=== PATIENT | male | born 1935 | race Caucasian/White ===

== ENCOUNTER 2022-04-20 17:53 | Inpatient (IN) | payer MEDICARE ==
[~2022-04-20] VITALS: Ht 182.9 cm; Wt 103.9 kg
[2022-04-20] MEDS ORDERED: IV NS 0.9% 500 ML BAG IV ONE (18:30)
--- NOTE | 2022-04-20 18:47 | NUR ---
BRADEN RA99 From Home "Throat/Hoarseness Feeling weak, Near syncope while in the shower [id number]". PT AAOX3. RR EVEN & UNLABORED. PT HYPOTENSIVE, ERMD AWARE. PLACED ON OPTICAL ENGINEERING TECHNICIAN, SR. DENIES CP, SOB, DIZZINESS, N/V, NUMBNESS/TINGLING SENSATION. NEURO INTACT. WILL CONT TO MONITOR.
[2022-04-20] MEDS ORDERED: TAMS-12 PO (18:59)
[2022-04-20] MEDS ORDERED: DAPA10TA PO (18:59)
[2022-04-20] MEDS ORDERED: CARV6.252 PO (18:59)
[2022-04-20] MEDS ORDERED: THIA100T70 PO (18:59)
[2022-04-20] MEDS ORDERED: SACU1TAB PO (18:59)
[2022-04-20] MEDS ORDERED: APIX2.5T PO (18:59)
[2022-04-20] MEDS ORDERED: FURO40TA5 PO (18:59)
[2022-04-20 19:12] LABS: ALANINE AMINOTRANSFERASE 21 U/L (12-78); ALBUMIN 3.3 g/dL (3.4-5.0); ALKALINE PHOSPHATASE 188 U/L (46-116); ASPARTATE AMINOTRANSFERASE 17 U/L (15-37); BILIRUBIN,DIRECT 0.3 mg/dL (0.0-0.2); BILIRUBIN,TOTAL 0.6 mg/dL (0.2-1.0); CALCIUM, SERUM 8.4 mg/dL (8.5-10.1); CARBON DIOXIDE 20 mmol/L (21-32); CHLORIDE 111 mmol/L (98-107); GLUCOSE 128 mg/dL (74-106); POTASSIUM 5.5 mmol/L (3.5-5.1); SODIUM SERUM 146 mmol/L (136-145); TOTAL PROTEIN, SERUM 6.6 g/dL (6.4-8.2)
[2022-04-20 19:23] LABS: UREA NITROGEN, BLOOD 109 mg/dL (7-18)
--- NOTE | 2022-04-20 19:23 | NUR ---
BUN 109
--- NOTE | 2022-04-20 19:35 | NUR ---
MOVE SHEET SUBMITTED.
[2022-04-20] MEDS ORDERED: SODIUM BICARBONATE SYR 50 MEQ/50 ML DISP.SYRIN ONE (19:43)
[2022-04-20] MEDS ORDERED: INSULIN REGULAR, HUMAN 100 UNIT/ML 10 ML VIAL ONE (19:43)
[2022-04-20] MEDS ORDERED: DEXTROSE 50%-WATER 50 ML DISP.SYRIN ONE (19:43)
[2022-04-20] MEDS ORDERED: INSULIN REGULAR, HUMAN 100 UNIT/ML 10 ML VIAL IV ONE (20:00)
[2022-04-20] MEDS ORDERED: SODIUM BICARBONATE SYR 50 MEQ/50 ML DISP.SYRIN IV ONE (20:00)
[2022-04-20] MEDS ORDERED: DEXTROSE 50%-WATER 50 ML DISP.SYRIN IV ONE (20:00)
[2022-04-20 20:21] LABS: BASOPHILS % (AUTO) 0.1 % (0.0-2.0); EOSINOPHILS % (AUTO) 0.4 % (0.0-6.0); HEMATOCRIT 30 % (39-51); HEMOGLOBIN 9.9 g/dL (13.5-17.5); LYMPHOCYTES # (AUTO) 0.4 K/uL (0.8-4.8); LYMPHOCYTES % (AUTO) 3.6 % (20.0-44.0); MEAN CORPUSCULAR HGB CONC 33 g/dl (31.0-36.0); MEAN CORPUSCULAR VOLUME 92 fL (80-96); MONOCYTES # (AUTO) 0.9 K/uL (0.1-1.30); MONOCYTES % (AUTO) 8.8 % (2.0-12.0); NEUTROPHILS # (AUTO) 8.5 K/uL (1.8-8.9); NEUTROPHILS % (AUTO) 87.1 % (43.0-81.0); RED BLOOD CELL COUNT(AUTO) 3.27 MIL/uL (4.5-6.0); WHITE BLOOD COUNT (AUTO) 9.7 K/uL (4.3-11.0)
[2022-04-20 20:24] LABS: PLATELET COUNT (AUTO) 47 K/uL (150-450)
--- NOTE | 2022-04-20 20:43 | NUR ---
PT BEING TRANSPORTED TO CT
--- NOTE | 2022-04-20 20:50 | NUR ---
BED 117
[2022-04-20 21:24] LABS: BAND % (MANUAL) 2 % (0.0-5.0); LYMPHOCYTES % (MANUAL) 6 % (16-48); MONOCYTES % (MANUAL) 8 % (0-11.0); NEUTROPHILS % (MANUAL) 84 (42-76)
--- NOTE | 2022-04-20 21:29 | NUR ---
DR BACA ON THE PHONE WITH DR FRANCE
--- NOTE | 2022-04-20 21:59 | NUR ---
pt taken to and returned from ct scan
--- NOTE | 2022-04-20 22:05 | NUR ---
RN BARIATRIC AT BEDSIDE
[2022-04-20] MEDS ORDERED: LEVOFLOXACIN 750 MG /D5W 150ML 150 ML IV ONE ×2 (22:49→23:00)
[2022-04-20] MEDS ORDERED: AZTREONAM 1 G in IV NS 0.9% 100 ML IV ONE (23:00)
[2022-04-20] MEDS ORDERED: METRONIDAZOLE 500MG/ NS 100ML 100 ML IV ONE (23:00)
--- NOTE | 2022-04-20 23:03 | NUR ---
REPORT GIVEN TO NHAN
--- NOTE | 2022-04-20 23:39 | NUR ---
PT TRANSPORTED TO ROOM 117-1 ON TURNER MACHINE PER ACLS WITH LEVAQUIN INFUSING AT 150ML/HR. V/S STABLE AT TRANSFER.
[2022-04-20 23:45] VITALS: BP 91/60
--- NOTE | 2022-04-20 23:45 | NUR ---
ADMISSION RN NOTES, RECEIVED 87 YEAR OLD MALE ADMITTED FROM ER VIA STRETCHER ACCOMPANIED BY NURSES, UNDER MEDICAL SERVICES OF HOLDEN ESTRADA, RONA LEÓN ASPHALT DISTRIBUTOR TENDER CARTON LINER FOR TONIGHT, DX PNA, CHF, FARA PATIENT A/O X3 ABLE TO VERBALIZE NEEDS AND CONCERNS, AT ROOM AIR NO SOB/ACUTE DISTRESS NOTED BUT UNABLE TO LAY FLAT, 02 98%, 91/50, LOW TEMPERATURE, WILL PLACE BEAR HUGGER, PATIENT WITH RIGHT AC AND LEFT HADN PERIPHERAL IV LINES, NOTED REDNESS SACRAL/INTERGLUTEAL AREA, MULTIPLE DISCOLORATIONS BACK/CHEST AND ARMS, NO OPEN SKIN NOTED, LCW PACEMAKER IN PLACED, WHEN CONNECTED TO TELE MONITOR, SHOWS V-PACING WITH HR IN 80S, ALL SAFETY PRECAUTIONS IN PLACED, ORIENTED TO ROOM AND EDUCATED TO CALL FOR ASSISTANCE, BED LOOKED AND IN LOWEST POSITION, CALL LIGHT W/I REACH, WILL CONTINUE TO MONITOR CLOSELY.
[2022-04-21] MEDS ORDERED: Z GUARD REMEDY 4 OZ OINT TP PRN
[2022-04-21] MEDS ORDERED: ACETAMINOPHEN 650 MG/SUPP.RECT RC PRN
[2022-04-21] MEDS ORDERED: ONDANSETRON HCL/PF 4 MG/2 ML VIAL IVP PRN
[2022-04-21] MEDS ORDERED: MEROPENEM 500 MG VIAL IV ONE (00:21)
[2022-04-21] MEDS: IV D5/0.45 NACL 1,000 ML IV PRN (00:22)
[2022-04-21] MEDS: MEROPENEM 500 MG in IV NS 0.9% 50 ML IV SCH ×3 (00:22→23:52)
[2022-04-21] MEDS ORDERED: METRONIDAZOLE 500MG/ NS 100ML 100 ML IV ONE (00:54)
[2022-04-21] MEDS ORDERED: AZTREONAM 1 G VIAL ONE (00:54)
[2022-04-21 02:00] VITALS: BP 101/61
[2022-04-21 04:00] VITALS: BP 90/55
--- NOTE | 2022-04-21 04:00 | NUR ---
ABLE TO OBTAIN BODY TEMP 96.9 AT THIS TIME, PATIENT WITH BEAR BELKIS, WILL CONT TO MONITOR CLOSELY.
--- NOTE | 2022-04-21 07:00 | NUR ---
called daughter earlier ange verify code staus of pt, called her again at this time, and she stated that her dad has an advance directives, but she does not remember what is written there, will fx later for now he will be consider full code, and she agreed, patient pulled iv line sand cont pulling tubings and tryong to get up from bed, order for restrains obtained from Nabeel Rees NP, F/C in placed 550ml obtained, cont on IVF as ordered, endorsed to Quinn MALAVE for cont of care.
[2022-04-21 07:05] LABS: BASOPHILS % (AUTO) 0.2 % (0.0-2.0); EOSINOPHILS % (AUTO) 1.7 % (0.0-6.0); HEMATOCRIT 29 % (39-51); HEMOGLOBIN 9.5 g/dL (13.5-17.5); LYMPHOCYTES # (AUTO) 0.3 K/uL (0.8-4.8); LYMPHOCYTES % (AUTO) 4.5 % (20.0-44.0); MEAN CORPUSCULAR HGB CONC 33 g/dl (31.0-36.0); MEAN CORPUSCULAR VOLUME 90 fL (80-96); MONOCYTES # (AUTO) 0.7 K/uL (0.1-1.30); MONOCYTES % (AUTO) 11.3 % (2.0-12.0); NEUTROPHILS # (AUTO) 5.2 K/uL (1.8-8.9); NEUTROPHILS % (AUTO) 82.3 % (43.0-81.0); RED BLOOD CELL COUNT(AUTO) 3.21 MIL/uL (4.5-6.0); WHITE BLOOD COUNT (AUTO) 6.3 K/uL (4.3-11.0)
--- NOTE | 2022-04-21 07:30 | NUR ---
RN NOTES PT FOUND SEMI FOWLERS DISPLAYING NO S/S OF DISTRESS, FLACC = 0 AND BREATHING IS EVEN AND UNLABORED ON RA. L UA ML IS PATIENT AND INTACT. BILATERAL SOFT WRISTS APPLIED, PULSES PALPATED DISTALLY AND CAP REFILL < 3 SECONDS BILATERALLY. PEREZ CATH BELOW PATIENT DRAINING BY GRAVITY. CONTINUE PLAN OF CARE AND ANTICIPATE NEEDS. SAFETY MEASURES IN PLACE, BED LOCKED AND IN LOWEST POSITION, SIDE RAILS UPX2, CALL LIGHT WITHIN REACH, BED ALARM ARMED.
[2022-04-21 07:31] LABS: PLATELET COUNT (AUTO) 42 K/uL (150-450)
[2022-04-21 07:46] LABS: CALCIUM, SERUM 8.2 mg/dL (8.5-10.1); CARBON DIOXIDE 22 mmol/L (21-32); CHLORIDE 112 mmol/L (98-107); CREATININE 2.9 mg/dL (0.6-1.3); GLUCOSE 92 mg/dL (74-106); MAGNESIUM 3.5 mg/dL (1.8-2.4); PHOSPHORUS 5.4 mg/dL (2.5-4.9); POTASSIUM 5.1 mmol/L (3.5-5.1); SODIUM SERUM 146 mmol/L (136-145)
[2022-04-21 07:50] LABS: IRON, SERUM 33 ug/dl (50-175); TOTAL IRON BINDING CAPACITY 300 ug/dl (250-450)
[2022-04-21 07:55] LABS: CHOLESTEROL 104 mg/dL (<200); HDL CHOLESTEROL 35 mg/dL (40-60); LDL 62 mg/dL (0-99); TRIGLYCERIDES 46 mg/dL (30-150)
--- NOTE | 2022-04-21 08:00 | NUR ---
SWALLOW EVAL ST PERFORMED SWALLOW EVALUATION, ST RECOMMENDED TO MAINTAIN NPO STATUS. RN ACKNOWLEDGED AND WILL MAINTAIN.
[2022-04-21 08:12] LABS: UREA NITROGEN, BLOOD 109 mg/dL (7-18)
[2022-04-21] MEDS: PANTOPRAZOLE 40 MG VIAL IV SCH (09:49)
--- NOTE | 2022-04-21 19:30 | NUR ---
RN NOTES PT FOUND SEMI FOWLERS DISPLAYING NO S/S OF DISTRESS, FLACC = 0 AND BREATHING IS EVEN AND UNLABORED ON RA. L UA ML IS PATIENT AND INTACT. BILATERAL SOFT WRISTS APPLIED, PULSES PALPATED DISTALLY AND CAP REFILL < 3 SECONDS BILATERALLY. PEREZ CATH BELOW PATIENT DRAINING BY GRAVITY, HEMATURIA NOTED AND MD KITCHEN NOTIFIED, TERMITE RENEWAL INSPECTOR INFORMED OF MD ORDERS. SBAR AND REPORT GIVEN TO TERMITE RENEWAL INSPECTOR RN, ALL QUESTIONS ANSWERED. SAFETY MEASURES IN PLACE, BED LOCKED AND IN LOWEST POSITION, SIDE RAILS UPX2, CALL LIGHT WITHIN REACH, BED ALARM ARMED. PT ENDORSED IN STABLE CONDITION FOR NAYELY.
[2022-04-21 20:00] VITALS: BP 111/68
[2022-04-22] VITALS (14 sets, daily range): BP systolic 97–151; BP diastolic 57–92
--- NOTE | 2022-04-22 03:52 | NUR ---
PATIENT YELLING, AGITATED, REFUSING VITAL SINGS AND TRYING TO REMOVE RESTRAINS, RONA LEÓN INFORMED AND REPLIED WITH ORDER FOR ATIVAN 0.5MG IVP ONCE, ORDER NOTED AND CARRIED OUT.
[2022-04-22] MEDS ORDERED: LORAZEPAM INJ 2 MG/ML VIAL IV ONE (04:00)
--- NOTE | 2022-04-22 04:00 | NUR ---
PATIENT REFUSED VITAL SINGS, BECOME AGITATED AND YELLING.
[2022-04-22] MEDS: IV D5/0.45 NACL 1,000 ML IV PRN ×2 (04:19→12:33)
--- NOTE | 2022-04-22 06:45 | NUR ---
RN CLOSING NOTE, PATIENT IS IN BED ASLEEP AT THIS TIME, ON ROOM AIR WITH OPTIMAL OO2 SAT LEVEL, V-PACING ON BINITROTOLUENE OPERATOR, LEFT AC 18G PATENT AND INTACT, D5 1/2 NS AT 50CC/HR INFUSING WELL AND PATIENT TOLERATED WELL, F/C IN PLACE DRAINING HEMATURIA BY GRAVITY, STUDY SPECIALIST IMTIAZ AWARE, ATIVAN IVP ADMINISTERED FOR AGITATION EARLIER, BILATERAL SOFT WRIST RESTRAIN IN PLACED, FREQUENT SKIN CHECKS DONE, NO ABNORMALITY NOTED, NO CIRCULATION COMPROMISED, BED LOCKED AND LOWEST POSITION, 3 SIDE RAILS UP, CALL LIGHT WITHIN REACH, WILL ENDORSE CONTINUITY OF CARE TO ONCOMING NURSE
--- NOTE | 2022-04-22 08:04 | NUR ---
RN [facility] NOTES PATIENT RECEIVED IN MY CARE THIS SHIFT, A/O X 2, TELE READING SHOWS V PACING AT 70'S, ON NC AT 2L, PEREZ DRAINING HEMATURIA BY GRAVITY, WITH IVF D5 1/2 NS ON LT AC 18G AT 50 ML/HR INFUSING WELL. BILATERAL SOFT WRIST RESTRAIN IN PLACE, FREQUENT SKIN CHECKS DONE, NO ABNORMALITY NOTED, NO CIRCULATION COMPROMISED, BED LOCKED AND IN LOWEST POSITION, 3 SIDE RAILS UP, CALL LIGHT WITHIN REACH. WILL CONTINUE TO MONITOR.
[2022-04-22 08:40] LABS: BASOPHILS % (AUTO) 0.3 % (0.0-2.0); EOSINOPHILS % (AUTO) 2.3 % (0.0-6.0); HEMATOCRIT 30 % (39-51); HEMOGLOBIN 9.9 g/dL (13.5-17.5); LYMPHOCYTES # (AUTO) 0.5 K/uL (0.8-4.8); LYMPHOCYTES % (AUTO) 10.6 % (20.0-44.0); MEAN CORPUSCULAR HGB CONC 33 g/dl (31.0-36.0); MEAN CORPUSCULAR VOLUME 91 fL (80-96); MONOCYTES # (AUTO) 0.8 K/uL (0.1-1.30); MONOCYTES % (AUTO) 17.6 % (2.0-12.0); NEUTROPHILS # (AUTO) 3.2 K/uL (1.8-8.9); NEUTROPHILS % (AUTO) 69.2 % (43.0-81.0); RED BLOOD CELL COUNT(AUTO) 3.33 MIL/uL (4.5-6.0); WHITE BLOOD COUNT (AUTO) 4.6 K/uL (4.3-11.0)
[2022-04-22 08:52] LABS: PLATELET COUNT (AUTO) 45 K/uL (150-450)
[2022-04-22] MEDS: TAMSULOSIN 0.4 MG CAP.SR.24H PO SCH (09:00)
[2022-04-22] MEDS: APIXABAN 2.5 MG TABLET PO SCH ×2 (09:00→17:00)
[2022-04-22] MEDS: CARVEDILOL 6.25 MG TABLET PO SCH ×2 (09:00→20:59)
--- NOTE | 2022-04-22 09:17 | NUR ---
telecommunication lines repairer note unable to give po meds patent is lethargic also patient with hematuria hold elicits at this time
[2022-04-22] MEDS: PANTOPRAZOLE 40 MG VIAL IV SCH (09:26)
[2022-04-22 09:30] LABS: ALANINE AMINOTRANSFERASE 17 U/L (12-78); ALBUMIN 2.9 g/dL (3.4-5.0); ALKALINE PHOSPHATASE 174 U/L (46-116); ASPARTATE AMINOTRANSFERASE 18 U/L (15-37); BILIRUBIN,TOTAL 0.6 mg/dL (0.2-1.0); CALCIUM, SERUM 8.4 mg/dL (8.5-10.1); CARBON DIOXIDE 23 mmol/L (21-32); CHLORIDE 115 mmol/L (98-107); CREATININE 3.1 mg/dL (0.6-1.3); GLUCOSE 94 mg/dL (74-106); MAGNESIUM 3.6 mg/dL (1.8-2.4); PHOSPHORUS 5.9 mg/dL (2.5-4.9); POTASSIUM 4.9 mmol/L (3.5-5.1); SODIUM SERUM 146 mmol/L (136-145); TOTAL PROTEIN, SERUM 6.1 g/dL (6.4-8.2)
[2022-04-22 09:37] LABS: UREA NITROGEN, BLOOD 108 mg/dL (7-18)
--- NOTE | 2022-04-22 09:49 | NUR ---
[facility] RN NOTE PT IS LETHARGIC. SEVERE CONGESTION NOTED. NOTIFIED DR LIRA AND ORDERED CHEST XRAY. DR CHOI ASSET PROTECTION SPECIALIST ORDERED ABG STAT. RT AT BEDSIDE WILL FOLLOW UP.
[2022-04-22 10:16] LABS: ABG BASE EXCESS -7.4 mmol/L; ABG PCO2 36.4 mmHg (35.0-45.0); ABG PH 7.313 (7.350-7.450); ABG PO2 100.1 mmHg (75.0-100.0); COHb 0.3 % (0.5-1.5); MetHb 0.2 % (0.0-1.5); O2Hb 96.4 % (94.0-97.0); SITE, ABG Right Radial
--- NOTE | 2022-04-22 10:56 | NUR ---
[facility] RN NOTES PT STILL LETHARGIC W CONGESTION. REPORTED TO RT AND TO DR LIRA. ORDERED TO TRANSFER TO ICU. FAMILY AT BEDSIDE. UPDATED ABOUT PT CONDITION. TRANSFER TO RM 257. REPORT GIVEN TO HENRY.
[2022-04-22 11:36] LABS: BAND % (MANUAL) 2 % (0.0-5.0); LYMPHOCYTES % (MANUAL) 15 % (16-48); MONOCYTES % (MANUAL) 10 % (0-11.0); NEUTROPHILS % (MANUAL) 70 (42-76)
[2022-04-22 11:37] LABS: EOSINOPHILS % (MANUAL) 3 % (0-4)
[2022-04-22] MEDS: MEROPENEM 500 MG in IV NS 0.9% 50 ML IV SCH (11:54)
[2022-04-22] MEDS ORDERED: LEVOFLOXACIN 500 MG /D5W 100ML 100 ML IV ONE (13:00)
[2022-04-22] MEDS ORDERED: DOXYCYCLINE HYCLATE (100 MG) 100 MG TABLET PO SCH (13:30)
--- NOTE | 2022-04-22 19:00 | NUR ---
RN NOTES PT FOUND SEMI FOWLERS DISPLAYING NO S/S OF DISTRESS, FLACC = 0 AND BREATHING IS EVEN AND UNLABORED ON 2L O2 NC. L AC 20G IS PATIENT AND INTACT. BILATERAL SOFT WRISTS APPLIED, PULSES PALPATED DISTALLY AND CAP REFILL < 3 SECONDS BILATERALLY. PEREZ CATH BELOW PATIENT DRAINING BY GRAVITY. SBAR AND REPORT GIVEN TO HEAD PASTRY CHEF RN, ALL QUESTIONS ANSWERED. SAFETY MEASURES IN PLACE, BED LOCKED AND IN LOWEST POSITION, SIDE RAILS UPX2, CALL LIGHT WITHIN REACH, BED ALARM ARMED. PT ENDORSED IN STABLE CONDITION FOR NAYELY.
[2022-04-22] MEDS: DOXYCYCLINE 100 MG in IV D5W 100 ML IV SCH (20:59)
--- NOTE | 2022-04-22 22:55 | NUR ---
RN NOTE [facility] TRANSFER TEAM CALLED STATING THERE IS NO BED AVAILABLE FOR PATIENT AT THIS TIME.
[2022-04-23] VITALS (25 sets, daily range): BP systolic 117–149; BP diastolic 52–98
[2022-04-23] MEDS: MEROPENEM 500 MG in IV NS 0.9% 50 ML IV SCH ×3 (00:19→23:51)
[2022-04-23 01:19] LABS: COLOR,URINE RED (YELLOW)
[2022-04-23 01:20] LABS: PH,URINE 6.5 (5.0-8.0); PROTEIN,URINE >300 mg/dl (NEGATIVE)
[2022-04-23 01:21] LABS: BILIRUBIN,URINE SMALL (NEGATIVE); UGLUCOSE NEGATIVE (NEGATIVE)
[2022-04-23 01:22] LABS: LEUKOCYTE ESTERASE ,URINE SMALL (NEGATIVE); NITRITE, URINE POSITIVE (NEGATIVE)
[2022-04-23 03:54] LABS: BACTERIA,URINE Many /HPF (None Seen); RBC,URINE TOO NUMEROUS TO COUN /HPF (0-2); SQUAMOUS EPITHELIAL CELL,UR Rare /HPF (None Seen); WBC,URINE 81-100 /HPF (0-3)
[2022-04-23 04:40] LABS: BASOPHILS % (AUTO) 0.4 % (0.0-2.0); EOSINOPHILS % (AUTO) 3.5 % (0.0-6.0); HEMATOCRIT 32 % (39-51); HEMOGLOBIN 10.4 g/dL (13.5-17.5); LYMPHOCYTES # (AUTO) 0.5 K/uL (0.8-4.8); LYMPHOCYTES % (AUTO) 10.1 % (20.0-44.0); MEAN CORPUSCULAR HGB CONC 33 g/dl (31.0-36.0); MEAN CORPUSCULAR VOLUME 91 fL (80-96); MONOCYTES # (AUTO) 0.7 K/uL (0.1-1.30); MONOCYTES % (AUTO) 14.7 % (2.0-12.0); NEUTROPHILS # (AUTO) 3.6 K/uL (1.8-8.9); NEUTROPHILS % (AUTO) 71.3 % (43.0-81.0); PLATELET COUNT (AUTO) 59 K/uL (150-450); RED BLOOD CELL COUNT(AUTO) 3.53 MIL/uL (4.5-6.0)
[2022-04-23 04:43] LABS: CHLORIDE 114 mmol/L (98-107); CREATININE 3.1 mg/dL (0.6-1.3); GLUCOSE 111 mg/dL (74-106); POTASSIUM 4.9 mmol/L (3.5-5.1); SODIUM SERUM 144 mmol/L (136-145)
[2022-04-23 04:46] LABS: UREA NITROGEN, BLOOD 102 mg/dL (7-18)
[2022-04-23 05:15] LABS: CALCIUM, SERUM 8.9 mg/dL (8.5-10.1)
[2022-04-23] MEDS: IV D5/0.45 NACL 1,000 ML IV PRN (06:12)
--- NOTE | 2022-04-23 06:28 | NUR ---
RN CLOSING NOTE PATIENT ON ISOLATION TO R/O COVID. A/OZ1, PERIODS OF CONFUSION. ALERT ABLE TO FOLLOW COMMANDS. TOLERATING ROOM AIR. NO COMPLAINTS OF PAIN. 100% V-PACING. PEREZ CATHETER WITH HEMATURIA. NO BM. PENDING OB STOOL COLLECTION. BILATERAL SOFT WRIST RESTRAINTS PRESET,, NO REDNESS. PATIENT IS NPO, PENDING SWALLOW EVAL. D51/2NS RUNNING. ABX GIVEN ORDERED. PENDING TO COLLECT RESP CULTURE, BLE DUPLEX. AND TRANSFER TO [facility], AWAITING BED ASSIGNMENT.
--- NOTE | 2022-04-23 07:30 | NUR ---
RN OPENING NOTE PT RECEIVED IN BED WITH BILATERAL SOFT WRIST RESTRAINTS AT THIS TIME. PT IS ON RA TOLERATING WELL WITH NO SIGNS OF DISTRESS OR LABORED BREATHING O2 SAT 97%. PT IS A/OX1; CONFUSED, ENDORSED TO BE GRUMPY AND COMBATIVE. PT IS NPO AT THIS TIME AND SCHEDULED TO HAVE SWALLOW EVAL THIS MORNING. IV ACCESS L AC 20G AND L HAND 20G INFUSING WITH D5 1/2NS @50ML/HR. FC IS IN PLACE DRAINING URINE TO GRAVITY PT HAS HEMATURIA AT THIS TIME. BED IS LOCKED IN LOWEST POSITION X3 BED RAILS UP AND ALL HOSPITAL SAFETY PRECAUTIONS ARE IN PLACE. WILL CONTINUE TO MONITOR THIS SHIFT.
[2022-04-23] MEDS: CARVEDILOL 6.25 MG TABLET PO SCH ×2 (08:17→21:18)
[2022-04-23] MEDS: TAMSULOSIN 0.4 MG CAP.SR.24H PO SCH (08:18)
[2022-04-23] MEDS: FARXIGA 10 MG PO SCH (08:18)
[2022-04-23] MEDS: PANTOPRAZOLE 40 MG VIAL IV SCH (08:41)
[2022-04-23] MEDS: DOXYCYCLINE 100 MG in IV D5W 100 ML IV SCH ×2 (08:41→21:05)
[2022-04-23] MEDS: HEPARIN SODIUM, PORCINE 5000 UNITS/1 ML VIAL SQ SCH ×2 (09:00→18:44)
--- NOTE | 2022-04-23 09:00 | NUR ---
RN NOTE: SWALLOW EVAL SWALLOW EVAL ATTEMPT WAS UNSUCCESFUL DUE TO PT BEING CONFUSED. ST STATED THEY WILL TRY AGAIN TOMORROW.
--- NOTE | 2022-04-23 09:30 | NUR ---
RN NOTE: HEPARIN PT HAS HEMATURIA AT THIS TIME AND PLT LEVEL 59. MD CONTACTED, PER DR. POLLARD HOLD HEPARIN DOSE AND CONTINUE TO MONITOR HEMATURIA.
--- NOTE | 2022-04-23 11:45 | NUR ---
RN NOTE: DIET PT PASSED BED SIDE SWALLOW SCREEN PERFORMED BY THIS NURSE. PER DR. POLLARD, PT PLACED ON PUREE CARDIAC DIET WITH THICKENER.
[2022-04-23] MEDS ORDERED: LEVOFLOXACIN 250 MG /D5W 50 ML 250 MG in PREMIX 1 EA IV SCH (12:00)
--- NOTE | 2022-04-23 12:30 | NUR ---
RN NOTE: JUAN PT TOLERATED PUREE FOODS WELL WITHOUT COMPLICATION. WILL CONTINUE TO MONITOR.
--- NOTE | 2022-04-23 18:45 | NUR ---
RN CLOSING NOTE PT IS SITTING UP IN BED WITH BILATERAL SOFT WRIST RESTRAINTS AT THIS TIME DAUGHTER GEORGE) IS AT BEDSIDE. PT IS ON RA TOLERATING WELL WITH NO SIGNS OF DISTRESS OR LABORED BREATHING O2 SAT 98%. PT IS A/OX2; WITH PERIODS OF CONFUSION. PT IS ON CARDIAC PUREE DIET AND TOLERATED WELL. IV ACCESS L AC 20G INFUSING WITH D5 1/2NS @50ML/HR. FC IS IN PLACE DRAINING URINE TO GRAVITY PT HAS HEMATURIA AT THIS TIME -400ML. BED IS LOCKED IN LOWEST POSITION X3 BED RAILS UP AND ALL HOSPITAL SAFETY PRECAUTIONS ARE IN PLACE. WILL ENDORSE TO REMEDIAL TEACHER NURSE FOR NAYELY.
--- NOTE | 2022-04-23 19:05 | NUR ---
RN OPENING NOTES RECEIVED PATIENT ON BED, ALERT AND VERBALLY RESPONSIVE, A/O x 2, WITH CONFUSION, ON ROOM AIR SATING AT 97%, RESPIRATORY EVEN AND UNLABORED, NO SOB NOTED, NOT IN ACUTE DISTRESS. STILL NOTES WITH HOARSE VOICE. REMAIN AFEBRILE. V-PACING ON MONITOR. NOTED WITH LAC IV LINE, PATENT, INTACT. FLUSHED WITH NS, NO S/S OF INFILTRATION NOTED AT SITE. RUNNING WITH D5 1/2 NS @ 40 ML/HR. PATIENT WITH PEREZ CATHETER PATENT, INTACT DRAINING WITH CLEAR YELLOW URINE VIA GRAVITY. ALL SAFETY MEASURE PROVIDED. BED IN LOWEST POSITION, LOCKED. BED ALARM ARMED. CALL LIGHT WITH IN REACH. CONTINUE TO MONITOR.
[2022-04-23] MEDS ORDERED: IV D5/0.45 NACL 1,000 ML IV PRN (19:13)
[2022-04-24] VITALS (18 sets, daily range): BP systolic 108–131; BP diastolic 69–88
[2022-04-24 04:35] LABS: BASOPHILS % (AUTO) 0.5 % (0.0-2.0); EOSINOPHILS % (AUTO) 5.4 % (0.0-6.0); HEMATOCRIT 31 % (39-51); HEMOGLOBIN 10.4 g/dL (13.5-17.5); LYMPHOCYTES # (AUTO) 0.5 K/uL (0.8-4.8); LYMPHOCYTES % (AUTO) 11.5 % (20.0-44.0); MEAN CORPUSCULAR HGB CONC 33 g/dl (31.0-36.0); MEAN CORPUSCULAR VOLUME 90 fL (80-96); MONOCYTES # (AUTO) 0.6 K/uL (0.1-1.30); MONOCYTES % (AUTO) 12.9 % (2.0-12.0); NEUTROPHILS # (AUTO) 3.1 K/uL (1.8-8.9); NEUTROPHILS % (AUTO) 69.7 % (43.0-81.0); PLATELET COUNT (AUTO) 55 K/uL (150-450); RED BLOOD CELL COUNT(AUTO) 3.46 MIL/uL (4.5-6.0); WHITE BLOOD COUNT (AUTO) 4.5 K/uL (4.3-11.0)
[2022-04-24 04:46] LABS: CALCIUM, SERUM 8.9 mg/dL (8.5-10.1); CARBON DIOXIDE 21 mmol/L (21-32); CHLORIDE 113 mmol/L (98-107); CREATININE 2.8 mg/dL (0.6-1.3); GLUCOSE 114 mg/dL (74-106); POTASSIUM 4.6 mmol/L (3.5-5.1); SODIUM SERUM 145 mmol/L (136-145)
[2022-04-24 05:06] LABS: UREA NITROGEN, BLOOD 101 mg/dL (7-18)
--- NOTE | 2022-04-24 07:17 | NUR ---
RN NOTES PATIENT REMAIN STABLE THROUGH OUT THE SHIFT. RESPIRATORY EVEN AND UNLABORED, NO SOB NOTED, NOT IN ACUTE DISTRESS. STILL NOTES WITH HOARSE VOICE. REMAIN AFEBRILE. V-PACING ON MONITOR. RUNNING WITH D5 1/2 NS @ 40 ML/HR. PATIENT WITH PEREZ CATHETER PATENT, INTACT DRAINING WITH CLEAR YELLOW URINE VIA GRAVITY. ALL DUE MEDS GIVEN PER MD'S ORDERED. ALL SAFETY MEASURE PROVIDED. BED IN LOWEST POSITION, LOCKED. BED ALARM ARMED. CALL LIGHT WITH IN REACH. REPORT GIVEN TO MORNING SHIFT NURSE.
--- NOTE | 2022-04-24 07:22 | NUR ---
WOUND CARE CONSULT: PT PRESENTS WITH INTACT DEEP TISSUE INJURY TO SACRUM, PRESENT ON ADMISSION. GENERALIZED EDEMA NOTED. RECOMMENDATIONS MADE FOR SKIN PROTECTION. DISCUSSED WITH NURSING STAFF. PT IS ON ISIDORO ISOFLEX LOW AIRLOSS BED. M D IN AGREEMENT WITH PLAN OF CARE.
--- NOTE | 2022-04-24 07:30 | NUR ---
RN OPENING NOTE RECEIVED PT IN BED, A/O X 2-3. PT FOLLOWS COMMANDS AND COOPERATIVE. PT IS ON RA SATING AT 97%. NO SIGNS OF RESP DISTRESS OR C/O PAIN NOTED AT THIS TIME. TELE MONITOR READS V-PACING. FC PATENT AND DRAINING. IV ACCESS NOTED AT L AC 20G, AND R HAND 20G. D51/2 NS RUNNING AT 40ML/HR. ALL SAFETY MEASURES IN PLACE, BED IN LOWEST LOCKED POSITION, SR UP X2, CALL LIGHT WITHIN REACH. WILL CONTINUE TO MONITOR THROUGHOUT SHIFT.
[2022-04-24] MEDS: PANTOPRAZOLE 40 MG VIAL IV SCH (08:21)
[2022-04-24] MEDS: TAMSULOSIN 0.4 MG CAP.SR.24H PO SCH (08:21)
[2022-04-24] MEDS: FARXIGA 10 MG PO SCH (08:22)
[2022-04-24] MEDS: CARVEDILOL 6.25 MG TABLET PO SCH ×2 (08:22→21:33)
[2022-04-24] MEDS: DOXYCYCLINE 100 MG in IV D5W 100 ML IV SCH ×2 (08:23→21:33)
[2022-04-24] MEDS: HEPARIN SODIUM, PORCINE 5000 UNITS/1 ML VIAL SQ SCH (09:00)
--- NOTE | 2022-04-24 09:43 | NUR ---
RN NOTES PT TRANSFERED TO ROOM 112 , TELE STATUS VIA ACLS PROTOCAL , REPORT GIVEN TO FELICIA MALAVE FOR CONTINUITY OF CARE .
[2022-04-24] MEDS: MEROPENEM 500 MG in IV NS 0.9% 50 ML IV SCH ×2 (11:37→23:46)
[2022-04-24 13:41] LABS: BAND % (MANUAL) 1 % (0.0-5.0); EOSINOPHILS % (MANUAL) 11 % (0-4); LYMPHOCYTES % (MANUAL) 13 % (16-48); METAMYELOCYTES % 1 % (0-0); MONOCYTES % (MANUAL) 12 % (0-11.0); MYELOCYTES % 1 % (0-0); NEUTROPHILS % (MANUAL) 61 (42-76)
--- NOTE | 2022-04-24 16:46 | NUR ---
SHIFT SUMMARY RECEIVED REPORT FROM ANANDA AVILEZ FOR NAYELY. PATIENT WAS TRANSFERRED FROM ICU TO [facility] 112 AT 0945. VSS, AFEBRILE, DENIES ANY PAIN THROUGHOUT THE SHIFT. IV ACCESS ON L AC #20G AND R HAND #20 G, BOTH INTACT AND PATENT. V-PACING ON THE TELEMONITOR. PEREZ CATHETER IN PLACE. RESTRAINT ASSESSED PER PROTOCOL. SAFETY MEASURES MAINTAINED. BED IN LOWEST POSITION, BRAKES LOCKED. SIDE RAILS UP X2. CALL LIGHT WITHIN REACH. WILL ENDORSE CONTINUITY OF CARE TO ONCOMING SHIFT.
[2022-04-24] MEDS ORDERED: APIXABAN 2.5 MG TABLET PO SCH (17:00)
--- NOTE | 2022-04-24 19:05 | NUR ---
RN OPENING NOTES RECEIVED PATIENT ON BED, ALERT AND VERBALLY RESPONSIVE, A/O x 2, WITH CONFUSION, ON ROOM AIR SATING AT 98%, RESPIRATORY EVEN AND UNLABORED, NO SOB NOTED, NOT IN ACUTE DISTRESS. STILL NOTES WITH HOARSE VOICE. REMAIN AFEBRILE. V-PACING ON MONITOR. NOTED WITH LAC IV LINE AND RIGHT HAND #20 PATENT, INTACT. FLUSHED WITH NS, NO S/S OF INFILTRATION NOTED AT SITE. PATIENT WITH PEREZ CATHETER PATENT, INTACT DRAINING WITH CLEAR YELLOW URINE VIA GRAVITY. ALL SAFETY MEASURE PROVIDED. BED IN LOWEST POSITION, LOCKED. BED ALARM ARMED. CALL LIGHT WITH IN REACH. CONTINUE TO MONITOR.
[2022-04-25] VITALS: BP 125/85
[2022-04-25 04:00] VITALS: BP 127/86
[2022-04-25 06:07] LABS: BASOPHILS % (AUTO) 0.3 % (0.0-2.0); EOSINOPHILS % (AUTO) 5.4 % (0.0-6.0); HEMATOCRIT 32 % (39-51); HEMOGLOBIN 10.5 g/dL (13.5-17.5); LYMPHOCYTES # (AUTO) 0.5 K/uL (0.8-4.8); LYMPHOCYTES % (AUTO) 8.5 % (20.0-44.0); MEAN CORPUSCULAR HGB CONC 32 g/dl (31.0-36.0); MEAN CORPUSCULAR VOLUME 92 fL (80-96); MONOCYTES # (AUTO) 0.6 K/uL (0.1-1.30); NEUTROPHILS # (AUTO) 4.1 K/uL (1.8-8.9); NEUTROPHILS % (AUTO) 74.8 % (43.0-81.0); PLATELET COUNT (AUTO) 63 K/uL (150-450); RED BLOOD CELL COUNT(AUTO) 3.52 MIL/uL (4.5-6.0); WHITE BLOOD COUNT (AUTO) 5.4 K/uL (4.3-11.0)
[2022-04-25 06:16] LABS: CALCIUM, SERUM 8.6 mg/dL (8.5-10.1); CARBON DIOXIDE 21 mmol/L (21-32); CHLORIDE 114 mmol/L (98-107); CREATININE 2.7 mg/dL (0.6-1.3); GLUCOSE 91 mg/dL (74-106); POTASSIUM 4.8 mmol/L (3.5-5.1); SODIUM SERUM 145 mmol/L (136-145)
[2022-04-25 06:21] LABS: UREA NITROGEN, BLOOD 91 mg/dL (7-18)
--- NOTE | 2022-04-25 07:38 | NUR ---
RN NOTES PATIENT REMAIN STABLE THROUGH OUT THE SHIFT, RESPIRATORY EVEN AND UNLABORED, NO SOB NOTED, NOT IN ACUTE DISTRESS. STILL NOTES WITH HOARSE VOICE. REMAIN AFEBRILE. V-PACING ON MONITOR. PATIENT WITH PEREZ CATHETER PATENT, INTACT DRAINING WITH CLEAR YELLOW URINE VIA GRAVITY. ALL DUE MEDS GIVEN ORDERED. ALL SAFETY MEASURE PROVIDED. BED IN LOWEST POSITION, LOCKED. BED ALARM ARMED. CALL LIGHT WITH IN REACH. CONTINUE TO MONITOR.
[2022-04-25 08:00] VITALS: BP 118/70
--- NOTE | 2022-04-25 08:02 | NUR ---
HEARING IMPAIRED TEACHER OPENING NOTES RECEIVED PATIENT IN BED, AWAKE, A/O x 2, WITH CONFUSION. PATIENT IS ON ROOM AIR, BREATHING EVEN AND UNLABORED, NO SOB NOTED, NOT IN ACUTE DISTRESS.ON TELE MONITOR V-PACING. NOTED WITH LAC IV LINE AND RIGHT HAND #20 PATENT, INTACT. FLUSHED WITH NS, NO S/S OF INFILTRATION NOTED AT SITE. PATIENT WITH PEREZ CATHETER PATENT, INTACT DRAINING WITH CLEAR YELLOW URINE VIA GRAVITY. ALL SAFETY MEASURES IN PLACE; BED IN LOWEST POSITION, LOCKED, RAILS UP X2, CALL LIGHT WITHIN REACH. WILL CONTINUE TO MONITOR PATIENT.
[2022-04-25] MEDS: TAMSULOSIN 0.4 MG CAP.SR.24H PO SCH (08:42)
[2022-04-25] MEDS: DOXYCYCLINE 100 MG in IV D5W 100 ML IV SCH (08:43)
[2022-04-25] MEDS: CARVEDILOL 6.25 MG TABLET PO SCH ×2 (08:43→20:44)
[2022-04-25] MEDS: FARXIGA 10 MG PO SCH (08:43)
[2022-04-25] MEDS: PANTOPRAZOLE 40 MG TABLET.DR PO SCH (08:44)
[2022-04-25] MEDS: MEROPENEM 500 MG in IV NS 0.9% 50 ML IV SCH ×2 (11:07→23:43)
[2022-04-25 12:00] VITALS: BP 127/71
[2022-04-25] MEDS: LACTOBACILLUS RHAMNOSUS GG 1 EACH CAP.SPRINK PO SCH ×2 (13:43→16:23)
[2022-04-25 16:13] VITALS: BP 103/72
--- NOTE | 2022-04-25 18:49 | NUR ---
ORDNANCE MECHANIC CLOSING NOTES PATIENT REMAINS IN BED, AWAKE, MORE ALERT AND VERBAL, A/O x 2, WITH FAMILY AT THE BEDSIDE. PATIENT IS ON ROOM AIR, BREATHING EVEN AND UNLABORED, NO SOB NOTED, NOT IN ACUTE DISTRESS DURING THE DAY. ON TELE MONITOR V-PACING. RIGHT HAND G#20 PATENT, INTACT. PATIENT WITH PEREZ CATHETER PATENT, INTACT DRAINING WITH CLEAR YELLOW URINE VIA GRAVITY. ALL NEEDS ATTENDED DURING THE DAY. ALL SAFETY MEASURES IN PLACE; BED IN LOWEST POSITION, LOCKED, RAILS UP X2, CALL LIGHT WITHIN REACH. WILL ENDORSE TO TIPPLE ENGINEER NURSE FOR NAYELY.
--- NOTE | 2022-04-25 19:45 | NUR ---
RN NOTE RECEIVED PT SLEEPING, AROUSES EASILY. AOX2. NOT IN ANY DISTRESS. ON RA SATING 97%. DENIES ANY SOB OR PAIN. VPACING ON TELE MONITOR. RELEASED FROM BILATERAL WRIST RESTRAINTS. PEREZ CATH IN PLACE, DRAINING CLEAR URINE OUTPUT. WILL CONTINUE TO MONITOR.
[2022-04-25 20:00] VITALS: BP 118/78
[2022-04-25] MEDS: DOXYCYCLINE HYCLATE (100 MG) 100 MG TABLET PO SCH (20:44)
--- NOTE | 2022-04-25 23:11 | NUR ---
RN NOTE PT COOPERATIVE, NO EPISODES OF PULLING OUT TUBINGS, REMAIN IN BED. CONTINUE OFF WRIST RESTRAINTS. WILL CONTINUE TO MONITOR.
[2022-04-26] VITALS: BP 114/79
[2022-04-26 04:00] VITALS: BP 106/76
--- NOTE | 2022-04-26 06:48 | NUR ---
RN NOTE NO SIGNIFICANT CHANGES NOTED DURING SHIFT. NO CHANGES IN LOC. PT REMAIN COOPERATIVE, WRIST RESTRAINTS DISCONTINUED.VPACING ON TELE MONITOR HR 70. TOLERATES ROOM AIR. NO SIGNS OF DISTRESS. LAC IV REMOVED DUE TO LEAKING, CATHETER INTACT. RHAND IV REMAIN PATENT AND INTACT, FLUSHES WELL. PEREZ IN PLACE, DRAINING WELL. TURNED AND REPOSITIONED. WILL ENDORSE TO NEXT SHIFT NURSE FOR NAYELY.
[2022-04-26 06:52] LABS: BASOPHILS % (AUTO) 0.6 % (0.0-2.0); EOSINOPHILS % (AUTO) 5.9 % (0.0-6.0); HEMATOCRIT 33 % (39-51); HEMOGLOBIN 10.3 g/dL (13.5-17.5); LYMPHOCYTES # (AUTO) 0.5 K/uL (0.8-4.8); LYMPHOCYTES % (AUTO) 10.8 % (20.0-44.0); MEAN CORPUSCULAR HGB CONC 31 g/dl (31.0-36.0); MEAN CORPUSCULAR VOLUME 94 fL (80-96); MONOCYTES # (AUTO) 0.5 K/uL (0.1-1.30); MONOCYTES % (AUTO) 11.4 % (2.0-12.0); NEUTROPHILS # (AUTO) 3.2 K/uL (1.8-8.9); NEUTROPHILS % (AUTO) 71.3 % (43.0-81.0); PLATELET COUNT (AUTO) 67 K/uL (150-450); WHITE BLOOD COUNT (AUTO) 4.4 K/uL (4.3-11.0)
[2022-04-26 06:55] LABS: CALCIUM, SERUM 8.7 mg/dL (8.5-10.1); CARBON DIOXIDE 19 mmol/L (21-32); CHLORIDE 116 mmol/L (98-107); CREATININE 2.4 mg/dL (0.6-1.3); GLUCOSE 93 mg/dL (74-106); SODIUM SERUM 145 mmol/L (136-145)
--- NOTE | 2022-04-26 07:00 | NUR ---
ELECTRONIC PREPRESS TECHNICIAN OPENING NOTES PATIENT LAYING IN BED, A/O X 2-3, ABLE TO MAKE NEEDS KNOWN. V-PACING ON TELE MONITOR HR 70. TOLERATING WELL ON ROOM AIR WITH NO S/S RESPIRATORY DISTRESS OR SOB NOTED. NO COMPLAINTS OF PAIN OR DISCOMFORT AT THIS TIME. R HAND #20 G SL CLEAN, INTACT, AND FLUSHING WELL. PEREZ CATHETER IN PLACE DRAINING CLEAR YELLOW URINE TO GRAVITY. SAFETY MEASURES IN PLACE: BED IN LOWEST LOCKED POSITION, SIDE RAILS UP X 2, CALL LIGHT WITHIN REACH. WILL CONTINUE TO MONITOR.
[2022-04-26 07:12] LABS: UREA NITROGEN, BLOOD 87 mg/dL (7-18)
[2022-04-26] MEDS: PANTOPRAZOLE 40 MG TABLET.DR PO SCH (07:36)
[2022-04-26 08:00] VITALS: BP 107/69
[2022-04-26] MEDS: TAMSULOSIN 0.4 MG CAP.SR.24H PO SCH (08:40)
[2022-04-26] MEDS: CARVEDILOL 6.25 MG TABLET PO SCH (08:40)
[2022-04-26] MEDS: LACTOBACILLUS RHAMNOSUS GG 1 EACH CAP.SPRINK PO SCH (08:40)
[2022-04-26] MEDS: DOXYCYCLINE HYCLATE (100 MG) 100 MG TABLET PO SCH (08:40)
[2022-04-26] MEDS: FARXIGA 10 MG PO SCH (08:42)
[2022-04-26] MEDS: MEROPENEM 500 MG in IV NS 0.9% 50 ML IV SCH (11:07)
[2022-04-26 12:00] VITALS: BP 123/58
--- NOTE | 2022-04-26 14:00 | NUR ---
FINANCIAL SALES ADVISORPROJECT COORDINATOR RN NOTES PATIENT AND FAMILY MADE AWARE OF MD DISCHARGE ORDERS. PATIENT AND DAUGHTER JIE VERBALIZED UNDERSTANDING OF MD DISCHARGE INSTRUCTIONS AND SIGNED MD DISCHARGE INSTRUCTIONS PAPERWORK. PATIENT AND DAUGHTER ALSO VERBALIZED POSSESSION OF ALL BELONGINGS AND SIGNED BELONGINGS LIST. IV LINE, ID BAND, MOLDING ENGINEER, AND PEREZ CATHETER REMOVED. ALL NEEDS MET. PATIENT TRANSFERRED TO WHEELCHAIR AND TRANSPORTED OFF OF UNIT ACCOMPANIED BY DAUGHTER AND QUALITY ASSURANCE AUDITOR FOR TRANSPORT HOME VIA PRIVATE CAR.
== END 2022-04-26 14:30 | disposition home health service (06) | DRG 193 ==
LOC: ER 17:56 → TELE1 20:51 → TELE-TD 04-21 00:23 → ICU 04-22 10:31 → TELE1 04-24 09:37
PROVIDERS: ADMIT Nurse Practitioner Family; ATTEND Nurse Practitioner Acute Care
DX: J12.9 Viral pneumonia, unspecified (principal); N17.0 Acute kidney failure with tubular necrosis; J96.01 Acute respiratory failure with hypoxia; G93.41 Metabolic encephalopathy; E44.1 Mild protein-calorie malnutrition; I13.0 Hypertensive heart and chronic kidney disease with heart failure and stage 1 through stage 4 chronic kidney disease, or unspecified chronic kidney disease; D61.818 Other pancytopenia; I31.3 Pericardial effusion (noninflammatory); E87.2 Acidosis; E87.0 Hyperosmolality and hypernatremia; N39.0 Urinary tract infection, site not specified; I50.9 Heart failure, unspecified; Z20.822 Contact with and (suspected) exposure to COVID-19; Z88.1 Allergy status to other antibiotic agents; Z79.01 Long term (current) use of anticoagulants; Z79.899 Other long term (current) drug therapy; E78.5 Hyperlipidemia, unspecified; D63.8 Anemia in other chronic diseases classified elsewhere; N18.9 Chronic kidney disease, unspecified; E87.5 Hyperkalemia; E88.09 Other disorders of plasma-protein metabolism, not elsewhere classified; K80.20 Calculus of gallbladder without cholecystitis without obstruction; N40.0 Benign prostatic hyperplasia without lower urinary tract symptoms; I71.2 Thoracic aortic aneurysm, without rupture; Z95.2 Presence of prosthetic heart valve; E66.01 Morbid (severe) obesity due to excess calories; I34.0 Nonrheumatic mitral (valve) insufficiency; Z68.30 Body mass index [BMI] 30.0-30.9, adult; G47.33 Obstructive sleep apnea (adult) (pediatric); N26.1 Atrophy of kidney (terminal); K57.30 Diverticulosis of large intestine without perforation or abscess without bleeding; K40.20 Bilateral inguinal hernia, without obstruction or gangrene, not specified as recurrent; N32.0 Bladder-neck obstruction; R31.9 Hematuria, unspecified
CPT/HCPCS: 36415; 36600; 70450-TC; 71045-TC; 71250-TC; 76770-TC; 80048-TC; 80053-TC; 80061-TC; 80076-TC; 81001; 82803-TC; 82962-TC; 83540-TC; 83605-TC; 83735-TC; 83880; 84100-TC; 84443-TC; 84484-TC; 85025-TC; 85730-TC; 86803; 87040-TC; 87086-TC; 87806; 92526; 92611-TC; 93307-TC; 93970-TC; 97116-TC; 97530-TC; A4216; A6403; C9113; C9803; G0378; J1644; J1815; J1956; J2060; J2185; J3490; J7030; J7040; J7050; J7060; U0003